=== PATIENT | male | born 1990 | race Caucasian/White ===

== ENCOUNTER 2021-05-14 10:05 | Emergency (ER) | payer SELFPAY ==
[~2021-05-14] VITALS: Ht 195.6 cm; Wt 60.0 kg
[2021-05-14 10:45] LABS: BASOPHILS # (AUTO) 0.1 X10'3 (0-0.2); BASOPHILS % (AUTO) 0.8 % (0-1); EOSINOPHILS # (AUTO) 0.7 X10'3 (0-0.9); EOSINOPHILS % (AUTO) 7.9 % (0-6); HEMATOCRIT 32.9 % (42.0-52.0); LYMPHOCYTES # (AUTO) 1.4 X10'3 (1.1-4.8); LYMPHOCYTES % (AUTO) 15.3 % (21-51); MEAN CORPUSCULAR HEMOGLOBIN 25.9 PG (27.0-31.0); MEAN CORPUSCULAR HGB CONC 33.4 g/dL (33.0-36.5); MEAN CORPUSCULAR VOLUME 77.6 FL (78-98); MEAN PLATELET VOLUME 7.6 FL (7.4-10.4); MONOCYTES # (AUTO) 1.1 X10'3 (0-0.9); MONOCYTES % (AUTO) 11.5 % (2-12); NEUTROPHILS % (AUTO) 64.5 % (42-75); PLATELET COUNT 437 X10'3 (140-440); RED BLOOD COUNT 4.25 X10'6 (4.70-6.10); RED CELL DISTRIBUTION WIDTH 19.1 % (11.5-14.5); WHITE BLOOD COUNT 9.3 X10'3 (4.5-11.0)
--- NOTE | 2021-05-14 10:45 | NUR ---
pt is stating no to everthing ,saying i don't know".asked what meds he takes and medical condition he has ?pt stated that i don't know.
[2021-05-14 10:47] LABS: UA COLLECTION TYPE VOIDED
[2021-05-14 10:48] LABS: CLARITY,URINE CLEAR (Clear); COLOR,URINE DARK YELLOW (Yellow); GLUCOSE, URINE NEGATIVE (Neg); KETONES,URINE NEGATIVE (Neg); LEUKOCYTE ESTERASE ,URINE NEGATIVE (Neg); NITRITES, URINE NEGATIVE (Neg); OCCULT BLOOD,URINE NEGATIVE (Neg); PROTEIN,URINE NEGATIVE (Neg); UROBILINOGEN,URINE 0.2 E.U/dL (0.2-1.0)
[2021-05-14 10:49] LABS: ALANINE AMINOTRANSFERASE 29 U/L (12-78); ALBUMIN 3.3 G/DL (3.4-5.0); ALBUMIN/GLOBULIN RATIO 0.7 (1.1-1.5); ALKALINE PHOSPHATASE 83 IU/L (46-116); ANION GAP 11 (8-16); ASPARTATE AMINO TRANSFERASE 22 U/L (10-37); BILIRUBIN,TOTAL 0.8 MG/DL (0.1-1.0); BLOOD UREA NITROGEN 15 MG/DL (7-18); CHLORIDE 105 MMOL/L (99-107); CREATININE 0.79 MG/DL (0.60-1.10); GLUCOSE 81 MG/DL (70-104); POTASSIUM 3.7 MMOL/L (3.5-5.1); SODIUM 143 MMOL/L (135-145); TOTAL CARBON DIOXIDE 27.2 MMOL/L (24-32); TOTAL PROTEIN 8.2 G/DL (6.4-8.2); eGFR > 90 ML/MIN
--- NOTE | 2021-05-14 10:53 | NUR ---
notified dr briseno that pt is full of lice .
[2021-05-14] MEDS ORDERED: Permethrin 1% 59ml topical rinse TP ONE (10:55)
[2021-05-14] MEDS ORDERED: Permethrin Cream 60gm TP ONE (10:55)
[2021-05-14 10:59] LABS: ETHANOL < 0.010 GM/DL (0.0-0.010)
[2021-05-14 11:11] LABS: URINE AMPHETAMINE SCREEN NEGATIVE (Neg); URINE BARBITUATE SCREEN NEGATIVE (Neg); URINE BENZODIAZEPINES SCREEN NEGATIVE (Neg); URINE CANNABINOID SCREEN POSITIVE (Neg); URINE COCAINE SCREEN NEGATIVE (Neg); URINE METHADONE SCREEN NEGATIVE (Neg); URINE OPIATE SCREEN NEGATIVE (Neg); URINE PHENCYCLIDINE SCREEN NEGATIVE (Neg)
--- NOTE | 2021-05-14 12:19 | NUR ---
pt came back to room after getting shower and antilice treatment .pt head is shaved and shower given by shannon villa and delisa as per dr briseno's verbal orders.
--- NOTE | 2021-05-14 12:20 | NUR ---
Assumed care of patient, pt. ambulated over from the main ER accompanied by two techs. He is requesting food and was given a snack. Pt. is sitting in bed at this time quietly, but appears to be whispering to himself and responding to internal stimuli. Will monitor. Addendum: 05/14/21 at 1547 by KARINE Minimal assessment completed r/t patient's psychosis, and A&O to name only. However, pt. will respond to direct questions with yes/no answers, and he denies any S/I, H/I, or A/V/ZHENG. Pt. denies any home medications. He presents with fatigue and closes his eyes between questions.
[2021-05-14 12:32] LABS: ANISOCYTOSIS 2+; HYPOCHROMASIA 1+; MICROCYTOSIS 1+; PLATELET ESTIMATE NORMAL; POLYCHROMASIA 1+
--- NOTE | 2021-05-14 13:03 | NUR ---
Pt. at CT at this time, getting an image of his head.
--- NOTE | 2021-05-14 13:55 | NUR ---
Pt. is sleeping at this time, laying on his left side, rr even and unlabored.
--- NOTE | 2021-05-14 15:07 | NUR ---
Pt. continues to sleep at this time, laying on his left side, rr even and unlabored.
[2021-05-14] MEDS ORDERED: NO HOME MEDS (15:17)
--- NOTE | 2021-05-14 16:22 | NUR ---
Pt. continues to sleep, this bond writer evaluated a wound present on his left lower leg, and area appears to be reddened and open in the middle draining purulent drainage. Area cleaned and a dressing applied, will endorse to MD. Picture in pt's chart.
[2021-05-14] MEDS ORDERED: TETanus/Pertussis (Acell)/Diphther VAC/PF (Tdap-Adult) 0.5ml syringe IMVAC ONE (16:45)
[2021-05-14] MEDS ORDERED: ondansetron 4mg rapidly disintigrating tab PO ONE (16:45)
[2021-05-14] MEDS ORDERED: mupirocin 2% ointment 22GM TP ONE (16:45)
--- NOTE | 2021-05-14 17:21 | NUR ---
Dr. Nicole over to evauate wound, obtained orders for ABT Septra, Bactroban Ointment to wound, and Tetanus shot to be administered. Tetanus shot administered in the left deltoid and pt. tolerated well.
[2021-05-14] MEDS: sulfamethoxazole/trimethoprim DS (800/160mg) tablet PO SCH ×2 (18:03→19:59)
--- NOTE | 2021-05-14 18:57 | NUR ---
One to one with the patient to assess severity of mental health symptoms. He has been sleeping on his bed. He gave very brief and guarded responses to questions. He denies that he has any kind of psychosis. When asked why he was here he stated he was yelling outside of [facility] and when asked why he stated, "I felt like it" Minimal eye contact. He was asked several times what year it was he stated each time that it was Wednesday. He was unable to state what city he was in. He stated that he has been sleeping good. He is unable to verbalize a plan for food, penitentiary or clothing. He was made aware that he is on a 5150 hold.
--- NOTE | 2021-05-14 19:03 | NUR ---
Talked to the patient about taking medications and he is refusing at this time.
--- NOTE | 2021-05-14 22:01 | NUR ---
The patient appears to be sleeping
--- NOTE | 2021-05-14 22:38 | NUR ---
Nurse to nurse with Cec[facility] at [facility]
--- NOTE | 2021-05-15 00:20 | NUR ---
The patient appears to be sleeping
--- NOTE | 2021-05-15 01:48 | NUR ---
THe patient appears to be sleeping
--- NOTE | 2021-05-15 03:42 | NUR ---
The patient is awake and mumbling to himself. He is responding to internal stimuli and making bizarre delusional statements that are very tangential.
--- NOTE | 2021-05-15 05:09 | NUR ---
The patient awake and and actively responding to internal stimuli.
[2021-05-15 05:19] VITALS: BP 122/80
--- NOTE | 2021-05-15 05:24 | NUR ---
THe patient is sitting on his bed talking very rapidly saying things like "my name is Luis Felipe Pat" and making racial slurs.
--- NOTE | 2021-05-15 06:49 | NUR ---
Assumed care, patient is awake in bed, hyperverbal talking to himself, "I am Cristofer Delgado. [place] is in nuclear war." Speech is disorganized and patient appears to be responding to internal stimuli. When speaking to staff patient appears more linear and is able to make needs know, "May I have some coffee please?" No s/sx acute distress.
[2021-05-15] MEDS: sulfamethoxazole/trimethoprim DS (800/160mg) tablet PO SCH (08:03)
--- NOTE | 2021-05-15 09:34 | NUR ---
Appears aggitated, yelling out bizzar statements, "My name is the state police!" swearing and shaking head hack and forth and bouncing up and down in bed. Verbally redirected and is quieter although still hyperverbal and making bizzar statements.
[2021-05-15] MEDS ORDERED: LORazepam 1 MG tablet PO PRN (09:40)
--- NOTE | 2021-05-15 10:55 | NUR ---
Continues responding to internal stuimuli. Hyper verbal making bizzar statements such as "My name is the deligation of [place]. We are all . Just making sure. My name is the deligation of [place]. We are all ." Refuses PRN Ativan for increased anxiety/ agitation but states, "I'll take it if I have to." Noted to be quieter when verbally redirected.
--- NOTE | 2021-05-15 12:59 | NUR ---
Patient continues to talk to himself. Ambulates independently to the restroom. 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
--- NOTE | 2021-05-15 14:15 | NUR ---
Pt left [facility] to [facility]. Pt picked up by [facility] bus driver supervisor.
[2021-05-15] MEDS ORDERED: lactobacillus rhamnosus 10,000 MMU CELLS/CAPSULE PO SCH (20:00)
== END 2021-05-15 14:46 ==
LOC: ER 10:05
DX: R46.0 Very low level of personal hygiene (principal); Z20.822 Contact with and (suspected) exposure to COVID-19; Z20.3 Contact with and (suspected) exposure to rabies
CPT/HCPCS: 36415; 70450; 80053; 80305; 80320; 81003; 84443; 85008; 85025; 87635; 90471; 90715; 99285; C9803